=== PATIENT | female | born 1955 | race Two or more races ===

== ENCOUNTER → 2022-07-18 | Outpatient (CLI) | payer OTHER ==
[~2022-07-18] VITALS: Ht 165.1 cm; Wt 75.7 kg
[~2022-07-18] MED LIST: REGADENOSON 0.4 MG/5 ML SYRG IV ONE
[2022-07-18 09:57] VITALS: BP 153/89
== END | disposition home or self-care (01) ==
LOC: XYW 07:54
PROVIDERS: ATTEND Specialist
DX: R07.9 Chest pain, unspecified (principal)
CPT/HCPCS: 78452; 93017; A9500; J2785